=== PATIENT | female | born 1960 | race Caucasian/White ===

== ENCOUNTER 2021-06-21 16:03 | Emergency (ER) | payer MEDICARE, MEDICAID ==
[~2021-06-21] VITALS: Ht 160 cm; Wt 76.8 kg
[2021-06-21 16:26] VITALS: BP 154/73
[2021-06-21] MEDS ORDERED: HYDROcodone/acetaminophen 5mg/325mg tablet PO ONE (17:10)
[2021-06-21] MEDS ORDERED: ketorolac tromethamine 15mg/ml inj. IM ONE (17:10)
[2021-06-21] MEDS ORDERED: ONDA4TAB6 PO (17:29)
[2021-06-21] MEDS ORDERED: HYDR-3965 PO (17:29)
[2021-07-01] MEDS ORDERED: ROSU20TA31 PO (12:55)
[2021-07-01] MEDS ORDERED: DICY20TA2 PO (12:55)
[2021-07-01] MEDS ORDERED: GABA300C PO (12:55)
[2021-07-01] MEDS ORDERED: INSU100V13 SQ (12:55)
[2021-07-01] MEDS ORDERED: FOLIC ACID PO (12:55)
[2021-07-01] MEDS ORDERED: DEXL60CA3 PO (12:55)
[2021-07-01] MEDS ORDERED: CLOP75TA34 PO (12:55)
[2021-07-01] MEDS ORDERED: HYDR-3972 PO (12:55)
[2021-07-01] MEDS ORDERED: METO5TAB98 PO (12:55)
[2021-07-01] MEDS ORDERED: SEVE800T8 PO (12:55)
[2021-07-01] MEDS ORDERED: INSU100I31 SQ (12:55)
[2021-07-01] MEDS ORDERED: BUPR-72 PO (12:55)
[2021-07-01] MEDS ORDERED: FOSI40TA71 PO (12:55)
[2021-07-01] MEDS ORDERED: FOLI0.8T7 PO (12:55)
[2021-07-01] MEDS ORDERED: LINA5TAB4 PO (12:55)
[2021-07-01] MEDS ORDERED: NIFE90TA61 PO (12:55)
[2021-07-01] MEDS ORDERED: FURO80TA3 PO (12:55)
[2021-07-01] MEDS ORDERED: FOLI0.4T14 PO (17:35)
== END 2021-06-21 19:54 | disposition home or self-care (01) ==
LOC: ER 16:04
DX: S82.841A Displaced bimalleolar fracture of right lower leg, initial encounter for closed fracture (principal); M25.571 Pain in right ankle and joints of right foot; Z88.0 Allergy status to penicillin; Z79.899 Other long term (current) drug therapy; X58.XXXA Exposure to other specified factors, initial encounter; Y93.89 Activity, other specified; Y92.89 Other specified places as the place of occurrence of the external cause; Y99.8 Other external cause status
CPT/HCPCS: 73590; 73610; 96372; 99284; J1885